=== PATIENT | female | born 1975 | race Caucasian/White ===

== ENCOUNTER 2016-12-16 20:30 | Emergency (ER) | payer BC ==
[2016-12-16 20:42] VITALS: BP 148/98; PULSE 79; TEMP 98.2; BMI 31.6
--- NOTE | 2016-12-16 20:59 | PDOC ---
History of Present Illness - History of Present Illness Initial Comments: 12/16/16 21:28 The patient is a 41 year old female, with no significant past medical history, who presents to the emergency department with persistent nasal congestion since 12/09/16 with new onset of pressure-like headache and lightheadedness for the past 2 days. She states she was seen in an urgent care on 12/11/16 where she was given prescription for augmentin and albuterol pump which she admits to taking daily with minimal relief of her symptoms. She states she was wheezing at the time of her urgent care visit, however, denies wheezing since. She states she used her pump today. She states her headache feels like pressure that radiates to her left eye. She reports taking ibuprofen earlier today with relief of her headache, but reports continued lightheadedness. She states she has been drinking a lot of fluids. She states her daughter is home with similar symptoms. She denies chest pain, shortness of breath, and dizziness. She denies fever, chills, nausea, vomit, diarrhea and constipation. She denies dysuria, frequency , urgency and hematuria. PAST MEDICAL HISTORY: no significant history PAST SURGICAL HISTORY: no significant history FAMILY HISTORY: no pertinent history SOCIAL HISTORY: Pt lives with family and is employed. MEDICATIONS: reviewed ALLERGIES: As per nursing notes ROS General: No fevers or chills, no weakness, no weight loss HEENT: (+) nasal congestion. No change in vision. No sore throat,. No ear pain CardioVascular: No chest pain or shortness of breath Respiratory:No cough, or wheezing. Gastrointestinal: no nausea, vomiting, diarrhea or constipation, No rectal bleeding Genitourinary: No dysuria, hematuria, or frequency Musculoskeletal: No joint or muscle pain or swelling Neurologic: (+) pressure-like headache and lightheadedness. No vertigo, dizziness or loss of consciousness Psychiatric: nor depression Skin: No rashes or easy bruising Endocrine: no increased thirst or abnormal weight change Allergic: no skin or latex allergy All other systems reviewed and normal Physical Exam: General: Well-nourished well-developed individual, no acute distress HEENT: Throat: Normal, tonsils normal, no erythema or exudate Neck: Supple, no meningeal signs, no lymphadenopathy Eyes::Pupils equal reactive and round, extraocular motion intact Chest: Nontender to palpation Cardiac: S1-S2 normal, regular rate and rhythm, no murmurs rubs or gallops Respiratory: Lungs clear to auscultation bilateral Abdomen: Soft, nondistended, normal bowel sounds, nontender to palpation diffusely Extremities: Warm, dry, no cyanosis, clubbing, or edema Skin: No rashes Neuro: Alert and oriented x3, nonfocal exam, grossly intact, normal gait Psych: Normal mood and affect <Gena Camara - Last Filed: 12/16/16 21:28> - General History Source: Patient Exam Limitations: No Limitations - History of Present Illness Initial Comments: 12/16/16 21:41 A portion of this note was documented by scribe services under my direction. I have reviewed the details of the note, within reason, and agree with the documentation. The case summary and management plan written by me. CBC shows a mildly elevated white count but no left shift. Consistent with a viral infection. Patient reassured and discharged home will follow-up with her primary care doctor as needed. <Charli Gonzalez I - Last Filed: 12/16/16 21:56> - General Chief Complaint: Headache Stated Complaint: HEADACHE, DIZZY Time Seen by Provider: 12/16/16 20:58 Past History <Gena Camara - Last Filed: 12/16/16 21:28> - Past Medical History Disorders: Yes (POLY CYSTIC OVARIAN SYNDROME) - Surgical History Cholecystectomy: Yes - Psycho/Social/Smoking Cessation Hx Anxiety: No Suicidal Ideation: No Smoking Status: Yes Smoking History: Former smoker Have you smoked in the past 12 months: No Number of Cigarettes Smoked Daily: 0 Information on smoking cessation initiated: No Hx Alcohol Use: No <Charli Gonzalez I - Last Filed: 12/16/16 21:56> - Past Medical History Allergies/Adverse Reactions: Allergies Allergy/AdvReac Type Severity Reaction Status Date / Time No Known Allergies Allergy Verified 12/16/16 20:35 Home Medications: Ambulatory Orders Albuterol Sulfate Inhaler - [Ventolin Hfa Inhaler -] 1 - 2 inh PO QID PRN Amoxicillin/Potassium Clav [Augmentin 875-125 Tablet] 1 each PO BID 12/16/16 Ibuprofen 400 mg PO ONCE 12/16/16 *Physical Exam - Vital Signs Last Vital Signs Temp Pulse Resp BP Pulse Ox 98.2 F 79 18 148/98 97 12/16/16 20:30 12/16/16 20:30 12/16/16 20:30 12/16/16 20:30 12/16/16 20:30 <Gena Camara - Last Filed: 12/16/16 21:28> - Vital Signs Last Vital Signs Temp Pulse Resp BP Pulse Ox 98.2 F 79 18 148/98 97 12/16/16 20:30 12/16/16 20:30 12/16/16 20:30 12/16/16 20:30 12/16/16 20:30 <Charli Gonzalez I - Last Filed: 12/16/16 21:56> ED Treatment Course - LABORATORY CBC & Chemistry Diagram: 12/16/16 21:28 <Charli Gonzalez I - Last Filed: 12/16/16 21:56> *DC/Admit/Observation/Transfer - Attestations Scribe Attestion: 12/16/16 21:29 Documentation prepared by Gena Camara, acting as medical records technician for Charli Gonzalez MD <Gena Camara - Last Filed: 12/16/16 21:28> - Discharge Dispostion Admit: No <Charli Gonzalez I - Last Filed: 12/16/16 21:56> Diagnosis at time of Disposition: Viral upper respiratory illness - Discharge Dispostion Disposition: HOME Condition at time of disposition: Stable - Patient Instructions Additional Instructions: Tylenol or Motrin as needed for pain. Return to the emergency department immediately with ANY new, persistent or worsening symptoms. Continue any medications as previously prescribed by your physician. You should follow up with your primary doctor as soon as possible regarding today's emergency department visit. . Please make sure your doctor reviews the results of your emergency evaluation. Thank you for coming to the Emergency Department today for your care. It was a pleasure to see you today. Please note that your evaluation is INCOMPLETE until you follow-up with your doctor.
[2016-12-16 21:45] LABS: BASOPHIL 1.6 % (0-2.0); EOSINOPHIL 1.2 % (0-4.5); MCH 32.1 pg (25.7-33.7); MCHC 35.1 g/dl (32.0-36.0); MEAN CELL VOLUME 91.4 fl (80-96); MEAN PLT VOLUME 7.4 fl (7.5-11.1); NEUTROPHILS 59.9 % (42.8-82.8); PLATELET COUNT 323 K/MM3 (134-434); RDW 11.8 % (11.6-15.6); WHITE BLOOD COUNT 12.1 K/mm3 (4.0-10.8)
== END 2016-12-16 22:03 | disposition home or self-care (01) ==
LOC: FER 20:30
DX: J06.9 Acute upper respiratory infection, unspecified (principal); Z87.891 Personal history of nicotine dependence; E28.2 Polycystic ovarian syndrome
CPT/HCPCS: 36415; 85025; 99282-25